=== PATIENT | male | born 1985 | race Caucasian/White ===

== ENCOUNTER 2021-06-20 23:30 | Emergency (ER) | payer SELFPAY ==
[2021-06-21 00:22] LABS: BASOPHIL 0.4 % (0-2); EOSINOPHIL 0.9 % (0-5); HCT 44.3 % (42.0-52.0); HGB 14.9 g/dl (13.2-18.0); LYMPHOCYTE 11.2 % (15-48); MCH 30.7 pg (25.0-31.0); MCHC 33.6 g/dL (32.0-36.0); MCV 91.3 fL (78.0-100.0); MONOCYTE 8.8 % (0-12); MPV 10.1 fL (6.0-9.5); NEUTROPHIL 78.4 % (41-80); NRBC 0; PLT 207 K/uL (150-400); RBC 4.85 M/uL (4.70-6.00); RDW 13.2 % (11.5-14.0); WBC 11.6 K/uL (4.0-10.5)
[2021-06-21 00:48] LABS: ALBUMIN 3.9 g/dL (3.4-5.0); BILIRUBIN - TOTAL 0.3 mg/dL (0.2-1.0); BUN/CREAT RATIO (CALC) 16.5 RATIO; C-REACTIVE PROTEIN 1.6 mg/dL (<=0.90); CREATININE 0.79 mg/dL (0.67-1.17); GLOBULIN (CALCULATION) 3.9 g/dL; TOTAL PROTEIN 7.8 g/dL (6.4-8.2)
[2021-06-21] MEDS ORDERED: NORCO 5-325 TA1 EACH PO (03:45)
[2021-06-21] MEDS ORDERED: KEFLEX250 MG PO (03:45)
[2021-06-21] MEDS ORDERED: IBUPROFEN800 MG PO (03:45)
[2021-06-21] MEDS ORDERED: BACTRIM DS TAB1 EACH PO (03:45)
== END 2021-06-21 03:55 | disposition home or self-care (01) ==
LOC: FER 23:30
PROVIDERS: Emergency Medicine Emergency Medical Services
DX: L03.116 Cellulitis of left lower limb (principal); F17.210 Nicotine dependence, cigarettes, uncomplicated
CPT/HCPCS: 36415; 80053; 84145; 85025; 85379; 86140; 87040; J7040